=== PATIENT | female | born 1940 | race Caucasian/White ===

== ENCOUNTER 2017-10-25 13:14 | Emergency (ER) | payer MEDICARE, OTHER ==
[~2017-10-25] VITALS: Ht 165.1 cm; Wt 78.9 kg
[~2017-10-25 13:14] MED LIST: ASPI81CH PO; ATOR10 PO; Aspirin EC81 MG PO; BUSP10 PO; CARV6.25 PO; CEPH500 PO; CHOL10002; CITA20 PO; DULO30 PO; GALA4 PO; HYDACE10B PO; HYDACE5325 PO; HYDPAM25 PO; HYDR1TAB94; HYDR1TAB94 PO; LAVAP17G PO; LISI20 PO; LISI5 PO; LORA.5 PO; LORA1 PO; LORATADINE10 MG PO; MECL25 PO; MELO7.5 PO; MONT10T PO; MORP15ER PO; SERT100 PO; Seroquel50 MG PO; VIIBRYD20 MG PO
[2017-10-25] MEDS ORDERED: PSEU120ER PO (14:26)
[2017-10-25] MEDS ORDERED: Flonase 0.05% N16 GM (14:27)
[2017-10-25] MEDS ORDERED: ALBU90OI61 INH (14:28)
[2017-10-25] MEDS ORDERED: POLYETHYLENE G255 GM PO (14:29)
[2017-10-25] MEDS ORDERED: DULO60 PO (14:30)
[2017-10-25] MEDS ORDERED: QUETIAPINE FUMA50 MG PO (14:31)
[2017-10-25] MEDS ORDERED: Prinivil10 MG PO (14:31)
[2017-10-25] MEDS ORDERED: Razadyne12 MG PO (14:32)
[2017-10-25 14:35] LABS: Influenza A Negative (NEGATIVE)
[2017-10-25 14:36] LABS: Influenza B Negative (NEGATIVE)
[2017-10-25] MEDS ORDERED: Mucinex600 MG PO (14:50)
[2017-10-25] MEDS ORDERED: Prednisone20 MG PO (14:50)
[2017-10-25] MEDS ORDERED: Zithromax250 MG PO (14:50)
[2018-07-09] MEDS ORDERED: Ultram50 MG PO (19:28)
== END 2017-10-25 14:58 | disposition home or self-care (01) ==
LOC: ER 13:14
PROVIDERS: Physician Assistant
DX: R05 Cough (principal); Z88.8 Allergy status to other drugs, medicaments and biological substances; Z88.0 Allergy status to penicillin; Z79.899 Other long term (current) drug therapy; Z79.82 Long term (current) use of aspirin; F32.9 Major depressive disorder, single episode, unspecified; F41.9 Anxiety disorder, unspecified; Z87.891 Personal history of nicotine dependence
CPT/HCPCS: 71046; 87804; 99284

== ENCOUNTER 2018-08-15 12:29 | Emergency (ER) | payer MEDICARE, OTHER ==
[~2018-08-15] VITALS: Ht 172.7 cm; Wt 83.9 kg
[~2018-08-15 12:29] MED LIST changes: +ALBU90OI61 INH; +DULO60 PO; +Flonase 0.05% N16 GM; +Mucinex600 MG PO; +POLYETHYLENE G255 GM PO; +PSEU120ER PO; +Prednisone20 MG PO; +Prinivil10 MG PO; +QUETIAPINE FUMA50 MG PO; +Razadyne12 MG PO; +Ultram50 MG PO; +Zithromax250 MG PO
[2018-08-15 12:51] LABS: BASOPHILS ABSOLUTE AUTO 0.08 K/mm3 (0.00-0.23); BASOPHILS PERCENT AUTO 1 % (0-2); EOSINOPHILS ABSOLUTE AUTO 0.35 K/mm3 (0.00-0.68); EOSINOPHILS PERCENT AUTO 6 % (0-6); Hematocrit 33.5 % (33.0-51.0); Hemoglobin 10.8 g/dL (11.5-16.0); IMMATURE GRAN ABSOLUTE AUTO 0.01 K/mm3 (0.00-0.10); IMMATURE GRAN PERCENT AUTO 0 % (0-1); LYMPHOCYTES ABSOLUTE AUTO 3.23 K/mm3 (0.84-5.20); LYMPHOCYTES PERCENT AUTO 51 % (21-46); MONOCYTES ABSOLUTE AUTO 0.54 K/mm3 (0.16-1.47); MONOCYTES PERCENT AUTO 9 % (4-13); Mean Corpuscular HGB 30.6 pg (26.0-34.0); Mean Corpuscular HGB Conc 32.2 g/dL (31.5-36.5); Mean Corpuscular Volume 95 fL (80-100); Mean Platelet Volume 8.5 fL (9.1-12.4); NEUTROPHILS ABSOLUTE AUTO 2.16 K/mm3 (1.96-9.15); NEUTROPHILS PERCENT AUTO 34 % (41-73); Platelet Count 242 K/mm3 (150-400); RDW Coefficient Variation 13.2 % (11.7-14.2); RDW Standard Deviation 45.9 fL (35.1-46.3); Red Blood Cell Count 3.53 M/mm3 (3.80-5.20); White Blood Cell Count 6.37 K/mm3 (4.00-11.30)
[2018-08-15 13:07] LABS: Alanine Aminotransfer (ALT/SGP 11 U/L (12-78); Albumin, Blood 3.4 g/dL (3.4-5.0); Albumin/Globulin Ratio 0.9 (0.8-1.8); Alk Phos 112 U/L (50-136); Anion Gap 6 mmol/L (6-16); Aspartate Aminotrans (AST/SGOT 13 U/L (12-37); Bilirubin, Total 0.4 mg/dL (0.1-1.0); Blood Urea Nitrogen 11 mg/dL (8-24); Bun/Creatinine Ratio 15.4 (12.0-20.0); CO2, Blood 27 mmol/L (21-32); Calcium, Blood 8.4 mg/dL (8.5-10.1); Chloride, Blood 102 mmol/L (98-108); Creatinine, Blood 0.72 mg/dL (0.40-1.00); Globulin, Blood 3.7 g/dL (2.2-4.0); Glomerular Filtration Rate >60 (60-); Glucose, Blood 83 mg/dL (70-99); Potassium, Blood 4.1 mmol/L (3.5-5.5); Sodium, Blood 135 mmol/L (136-145); Total Protein, Blood 7.1 g/dL (6.4-8.2)
[2018-08-15 14:36] LABS: Source, Urine Clean Catch
[2018-08-15 14:55] LABS: Appearance, Urine Hazy (Clear); Bilirubin, Urine Neg (Neg); Blood, Urine 1+ (Neg); Color, Urine Yellow (P-Yellow); Glucose Qualitative, Urine Neg (Neg); Ketones, Urine Neg (Neg); Leukocyte Esterase, Urine 3+ (Neg); Nitrite, Urine Neg (Neg); Protein, Urine 1+ (Neg); Urobilinogen, Urine NORM (Normal)
[2018-08-15 15:16] LABS: White Blood Cells, Urine 25-50 /hpf (0-5)
[2018-08-15 15:17] LABS: Bacteria Many /hpf; Renal Epithelial Rare /hpf (0-Rare); Squamous Epithelial Cells Mod /hpf (Few)
[2018-08-15] MEDS ORDERED: Macrobid 100 M100 MG PO (16:03)
== END 2018-08-15 16:24 | disposition home or self-care (01) ==
LOC: ER 12:29
PROVIDERS: Emergency Medicine
DX: F03.90 Unspecified dementia, unspecified severity, without behavioral disturbance, psychotic disturbance, mood disturbance, and anxiety (principal); N39.0 Urinary tract infection, site not specified; Z88.0 Allergy status to penicillin; Z88.8 Allergy status to other drugs, medicaments and biological substances; Z79.899 Other long term (current) drug therapy; Z79.82 Long term (current) use of aspirin; F32.9 Major depressive disorder, single episode, unspecified; F41.9 Anxiety disorder, unspecified; Z87.891 Personal history of nicotine dependence
CPT/HCPCS: 80053; 81001; 82947; 85025; 87086; 87147; 93005; 93010; 99285-25

== ENCOUNTER 2019-03-03 16:58 | Emergency (ER) | payer MEDICARE, OTHER ==
[~2019-03-03] VITALS: Ht 165.1 cm; Wt 95.2 kg
[~2019-03-03 16:58] MED LIST changes: +Macrobid 100 M100 MG PO
[2019-03-03] MEDS ORDERED: MONT10T PO (17:13)
[2019-03-03] MEDS ORDERED: LISI5 PO (17:13)
[2019-03-03 17:42] LABS: BASOPHILS ABSOLUTE AUTO 0.08 K/mm3 (0.00-0.23); BASOPHILS PERCENT AUTO 1 % (0-2); EOSINOPHILS ABSOLUTE AUTO 0.38 K/mm3 (0.00-0.68); EOSINOPHILS PERCENT AUTO 6 % (0-6); Hematocrit 35.2 % (33.0-51.0); Hemoglobin 11.3 g/dL (11.5-16.0); IMMATURE GRAN ABSOLUTE AUTO 0.01 K/mm3 (0.00-0.10); IMMATURE GRAN PERCENT AUTO 0 % (0-1); LYMPHOCYTES ABSOLUTE AUTO 1.74 K/mm3 (0.84-5.20); LYMPHOCYTES PERCENT AUTO 29 % (21-46); MONOCYTES ABSOLUTE AUTO 0.53 K/mm3 (0.16-1.47); MONOCYTES PERCENT AUTO 9 % (4-13); Mean Corpuscular HGB Conc 32.1 g/dL (31.5-36.5); Mean Corpuscular Volume 91 fL (80-100); Mean Platelet Volume 8.6 fL (9.1-12.4); NEUTROPHILS ABSOLUTE AUTO 3.25 K/mm3 (1.96-9.15); NEUTROPHILS PERCENT AUTO 54 % (41-73); Platelet Count 332 K/mm3 (150-400); RDW Standard Deviation 46.7 fL (35.1-46.3); Red Blood Cell Count 3.89 M/mm3 (3.80-5.20); White Blood Cell Count 5.99 K/mm3 (4.00-11.30)
[2019-03-03 18:03] LABS: Alanine Aminotransfer (ALT/SGP 12 U/L (12-78); Albumin, Blood 3.2 g/dL (3.4-5.0); Albumin/Globulin Ratio 0.8 (0.8-1.8); Alk Phos 139 U/L (50-136); Anion Gap 5 mmol/L (6-16); Aspartate Aminotrans (AST/SGOT 12 U/L (12-37); Bilirubin, Total 0.6 mg/dL (0.1-1.0); Blood Urea Nitrogen 8 mg/dL (8-24); Bun/Creatinine Ratio 12.7 (12.0-20.0); CO2, Blood 29 mmol/L (21-32); Chloride, Blood 101 mmol/L (98-108); Creatinine, Blood 0.63 mg/dL (0.40-1.00); Globulin, Blood 4.2 g/dL (2.2-4.0); Glomerular Filtration Rate >60 (60-); Glucose, Blood 116 mg/dL (70-99); Potassium, Blood 4.2 mmol/L (3.5-5.5); Sodium, Blood 135 mmol/L (136-145); Total Protein, Blood 7.4 g/dL (6.4-8.2); Troponin I <0.015 ng/mL (0.000-0.040)
== END 2019-03-03 20:06 | disposition home or self-care (01) ==
LOC: ER 16:58
PROVIDERS: Emergency Medicine
DX: R20.2 Paresthesia of skin (principal); Z86.73 Personal history of transient ischemic attack (TIA), and cerebral infarction without residual deficits; Z88.0 Allergy status to penicillin; Z88.8 Allergy status to other drugs, medicaments and biological substances; Z79.899 Other long term (current) drug therapy; Z79.82 Long term (current) use of aspirin; F32.9 Major depressive disorder, single episode, unspecified; F41.9 Anxiety disorder, unspecified; Z87.891 Personal history of nicotine dependence
CPT/HCPCS: 36415; 70450; 80053; 84484; 85025; 93005; 93010; 99284-25

== ENCOUNTER → 2019-08-10 | Outpatient (CLI) | payer MEDICARE, OTHER ==
[2019-08-10 17:36] LABS: BASOPHILS ABSOLUTE AUTO 0.08 K/mm3 (0.00-0.23); BASOPHILS PERCENT AUTO 1 % (0-2); EOSINOPHILS ABSOLUTE AUTO 0.42 K/mm3 (0.00-0.68); EOSINOPHILS PERCENT AUTO 4 % (0-6); Hematocrit 40.8 % (33.0-51.0); Hemoglobin 13.1 g/dL (11.5-16.0); IMMATURE GRAN ABSOLUTE AUTO 0.03 K/mm3 (0.00-0.10); IMMATURE GRAN PERCENT AUTO 0 % (0-1); LYMPHOCYTES PERCENT AUTO 24 % (21-46); MONOCYTES ABSOLUTE AUTO 0.78 K/mm3 (0.16-1.47); MONOCYTES PERCENT AUTO 7 % (4-13); Mean Corpuscular HGB 28.9 pg (26.0-34.0); Mean Corpuscular HGB Conc 32.1 g/dL (31.5-36.5); Mean Corpuscular Volume 90 fL (80-100); Mean Platelet Volume 9.3 fL (9.1-12.4); NEUTROPHILS ABSOLUTE AUTO 7.32 K/mm3 (1.96-9.15); NEUTROPHILS PERCENT AUTO 65 % (41-73); Platelet Count 297 K/mm3 (150-400); RDW Coefficient Variation 14.2 % (11.7-14.2); RDW Standard Deviation 46.8 fL (35.1-46.3); Red Blood Cell Count 4.54 M/mm3 (3.80-5.20); White Blood Cell Count 11.33 K/mm3 (4.00-11.30)
[2019-08-10 17:56] LABS: Alanine Aminotransfer (ALT/SGP 11 U/L (12-78); Albumin, Blood 3.8 g/dL (3.4-5.0); Albumin/Globulin Ratio 0.8 (0.8-1.8); Alk Phos 158 U/L (40-126); Anion Gap 9 mmol/L (6-16); Aspartate Aminotrans (AST/SGOT 16 U/L (12-37); Bilirubin, Total 0.7 mg/dL (0.1-1.0); Blood Urea Nitrogen 11 mg/dL (8-24); Bun/Creatinine Ratio 14.3 (12.0-20.0); CO2, Blood 29 mmol/L (21-32); Calcium, Blood 9.2 mg/dL (8.5-10.1); Chloride, Blood 103 mmol/L (98-108); Creatinine, Blood 0.77 mg/dL (0.40-1.00); Globulin, Blood 4.6 g/dL (2.2-4.0); Glomerular Filtration Rate >60 (60-); Glucose, Blood 108 mg/dL (70-99); Potassium, Blood 3.8 mmol/L (3.5-5.5); Sodium, Blood 141 mmol/L (136-145); Total Protein, Blood 8.4 g/dL (6.4-8.2)
== END | disposition home or self-care (01) ==
LOC: LAB EV 17:32 → LAB SHORT 17:32
PROVIDERS: Physician Assistant
DX: R30.0 Dysuria (principal); R53.83 Other fatigue
CPT/HCPCS: 80053; 84443; 85025; 87077; 87086; 87186

== ENCOUNTER 2019-10-03 11:22 | Emergency (ER) | payer MEDICARE, OTHER ==
[~2019-10-03] VITALS: Ht 162.6 cm; Wt 97.5 kg
[2019-10-03 12:07] LABS: BASOPHILS ABSOLUTE AUTO 0.06 K/mm3 (0.00-0.23); BASOPHILS PERCENT AUTO 1 % (0-2); EOSINOPHILS ABSOLUTE AUTO 0.21 K/mm3 (0.00-0.68); EOSINOPHILS PERCENT AUTO 2 % (0-6); Hematocrit 38.6 % (33.0-51.0); Hemoglobin 12.5 g/dL (11.5-16.0); IMMATURE GRAN ABSOLUTE AUTO 0.06 K/mm3 (0.00-0.10); IMMATURE GRAN PERCENT AUTO 1 % (0-1); LYMPHOCYTES ABSOLUTE AUTO 2.42 K/mm3 (0.84-5.20); LYMPHOCYTES PERCENT AUTO 19 % (21-46); MONOCYTES ABSOLUTE AUTO 1.25 K/mm3 (0.16-1.47); MONOCYTES PERCENT AUTO 10 % (4-13); Mean Corpuscular HGB 28.5 pg (26.0-34.0); Mean Corpuscular HGB Conc 32.4 g/dL (31.5-36.5); Mean Corpuscular Volume 88 fL (80-100); Mean Platelet Volume 9.6 fL (9.1-12.4); NEUTROPHILS ABSOLUTE AUTO 8.81 K/mm3 (1.96-9.15); NEUTROPHILS PERCENT AUTO 69 % (41-73); Platelet Count 305 K/mm3 (150-400); RDW Coefficient Variation 14.1 % (11.7-14.2); RDW Standard Deviation 45.3 fL (35.1-46.3); Red Blood Cell Count 4.38 M/mm3 (3.80-5.20); White Blood Cell Count 12.81 K/mm3 (4.00-11.30)
[2019-10-03 12:35] LABS: Alanine Aminotransfer (ALT/SGP 11 U/L (12-78); Albumin, Blood 3.1 g/dL (3.4-5.0); Albumin/Globulin Ratio 0.7 (0.8-1.8); Alk Phos 117 U/L (50-136); Anion Gap 8 mmol/L (6-16); Aspartate Aminotrans (AST/SGOT 18 U/L (12-37); Blood Urea Nitrogen 8 mg/dL (8-24); Bun/Creatinine Ratio 13.5 (12.0-20.0); CO2, Blood 32 mmol/L (21-32); Calcium, Blood 8.8 mg/dL (8.5-10.1); Chloride, Blood 93 mmol/L (98-108); Creatinine, Blood 0.59 mg/dL (0.40-1.00); Globulin, Blood 4.7 g/dL (2.2-4.0); Glomerular Filtration Rate >60 (60-); Glucose, Blood 107 mg/dL (70-99); Potassium, Blood 2.9 mmol/L (3.5-5.5); Sodium, Blood 133 mmol/L (136-145); Total Protein, Blood 7.8 g/dL (6.4-8.2)
[2019-10-03 14:31] LABS: Source, Urine Catheter
[2019-10-03 14:52] LABS: Bilirubin, Urine Neg (Neg); Blood, Urine 1+ (Neg); Glucose Qualitative, Urine Neg (Neg); Ketones, Urine 2+ (Neg); Leukocyte Esterase, Urine 3+ (Neg); Nitrite, Urine Neg (Neg); Protein, Urine Neg (Neg); Urobilinogen, Urine NORM (Normal)
[2019-10-03 15:41] LABS: Appearance, Urine Hazy (Clear); Color, Urine Yellow (P-Yellow)
[2019-10-03 15:42] LABS: Bacteria Many /hpf; Red Blood Cells, Urine 0-2 /hpf (0-2); Squamous Epithelial Cells Few /hpf (Few); White Blood Cells, Urine TNTC /hpf (0-5)
[2019-10-03] MEDS ORDERED: POTCHL20ER PO (15:49)
[2019-10-03] MEDS ORDERED: CEPH500 PO (15:49)
== END 2019-10-03 16:21 | disposition home or self-care (01) ==
LOC: ER 11:22
PROVIDERS: Physician Assistant
DX: S70.01XA Contusion of right hip, initial encounter (principal); N39.0 Urinary tract infection, site not specified; E87.6 Hypokalemia; J44.9 Chronic obstructive pulmonary disease, unspecified; I10 Essential (primary) hypertension; F03.90 Unspecified dementia, unspecified severity, without behavioral disturbance, psychotic disturbance, mood disturbance, and anxiety; Z86.73 Personal history of transient ischemic attack (TIA), and cerebral infarction without residual deficits; Z87.891 Personal history of nicotine dependence; W19.XXXA Unspecified fall, initial encounter
CPT/HCPCS: 73523; 80053; 81001; 85025; 87086; 99284-25

== ENCOUNTER 2020-09-24 09:56 | Emergency (ER) | payer MEDICARE, OTHER ==
[~2020-09-24] VITALS: Ht 170.2 cm; Wt 81.7 kg
[~2020-09-24 09:56] MED LIST changes: -ALBU90OI61 INH; -ASPI81CH PO; +CEFD300 PO; -DULO60 PO; +POTCHL20ER PO; -QUETIAPINE FUMA50 MG PO; -Razadyne12 MG PO; -Seroquel50 MG PO; +TAMS.4ER PO
[2020-09-24 11:06] LABS: BASOPHILS ABSOLUTE AUTO 0.07 K/mm3 (0.00-0.23); BASOPHILS PERCENT AUTO 1 % (0-2); EOSINOPHILS ABSOLUTE AUTO 0.48 K/mm3 (0.00-0.68); EOSINOPHILS PERCENT AUTO 6 % (0-6); Hematocrit 36.1 % (33.0-51.0); Hemoglobin 11.2 g/dL (11.5-16.0); IMMATURE GRAN ABSOLUTE AUTO 0.02 K/mm3 (0.00-0.10); IMMATURE GRAN PERCENT AUTO 0 % (0-1); LYMPHOCYTES ABSOLUTE AUTO 2.47 K/mm3 (0.84-5.20); LYMPHOCYTES PERCENT AUTO 31 % (21-46); MONOCYTES ABSOLUTE AUTO 0.65 K/mm3 (0.16-1.47); MONOCYTES PERCENT AUTO 8 % (4-13); Mean Corpuscular HGB 28.3 pg (26.0-34.0); Mean Corpuscular Volume 91 fL (80-100); Mean Platelet Volume 9.8 fL (9.1-12.4); NEUTROPHILS ABSOLUTE AUTO 4.19 K/mm3 (1.96-9.15); NEUTROPHILS PERCENT AUTO 53 % (41-73); Platelet Count 279 K/mm3 (150-400); RDW Coefficient Variation 14.1 % (11.7-14.2); RDW Standard Deviation 47.8 fL (35.1-46.3); Red Blood Cell Count 3.96 M/mm3 (3.80-5.20); White Blood Cell Count 7.88 K/mm3 (4.00-11.30)
[2020-09-24 11:17] LABS: Alanine Aminotransfer (ALT/SGP 19 U/L (12-78); Albumin, Blood 3.1 g/dL (3.4-5.0); Albumin/Globulin Ratio 0.7 (0.8-1.8); Alk Phos 147 U/L (50-136); Anion Gap 5 mmol/L (6-16); Aspartate Aminotrans (AST/SGOT 11 U/L (12-37); Bilirubin, Total 0.7 mg/dL (0.1-1.0); Blood Urea Nitrogen 17 mg/dL (8-24); Bun/Creatinine Ratio 22.4 (12.0-20.0); CO2, Blood 27 mmol/L (21-32); Chloride, Blood 107 mmol/L (98-108); Creatinine, Blood 0.76 mg/dL (0.40-1.00); Globulin, Blood 4.2 g/dL (2.2-4.0); Glomerular Filtration Rate >60 (60-); Glucose, Blood 116 mg/dL (70-99); Potassium, Blood 4.2 mmol/L (3.5-5.5); Sodium, Blood 139 mmol/L (136-145); Total Protein, Blood 7.3 g/dL (6.4-8.2); Troponin I <0.015 ng/mL (0.000-0.040)
[2020-09-24] MEDS ORDERED: ATOR40TA PO (13:04)
[2020-09-24] MEDS ORDERED: Razadyne12 MG PO (13:04)
[2020-09-24] MEDS ORDERED: MEMANTINE HCL10 MG PO (13:05)
[2020-09-24] MEDS ORDERED: ASPI81CH PO (13:06)
[2020-09-24] MEDS ORDERED: MELO7.5 PO (13:06)
[2020-09-24] MEDS ORDERED: QUET25 PO (13:07)
[2020-09-24] MEDS ORDERED: QUET100 PO (13:07)
[2020-09-24] MEDS ORDERED: LOSARTAN POTASS25 M2 PO (13:07)
[2020-09-24] MEDS ORDERED: DULO60 PO (13:07)
[2020-09-24] MEDS ORDERED: CARV6.25 PO (13:08)
[2020-09-24] MEDS ORDERED: MONT10T PO (13:08)
[2020-09-24] MEDS ORDERED: ALBU90OI61 INH (13:10)
== END 2020-09-24 14:30 | disposition home or self-care (01) ==
LOC: ER 09:56
PROVIDERS: Emergency Medicine
DX: R55 Syncope and collapse (principal); R00.1 Bradycardia, unspecified; R56.9 Unspecified convulsions; J44.9 Chronic obstructive pulmonary disease, unspecified; Z88.0 Allergy status to penicillin; Z79.899 Other long term (current) drug therapy; Z91.018 Allergy to other foods; Z86.73 Personal history of transient ischemic attack (TIA), and cerebral infarction without residual deficits
CPT/HCPCS: 70450; 71046; 80053; 84484; 85025; 93005; 93010; 99285-25

== ENCOUNTER 2020-12-22 13:38 | Inpatient (IN) | payer MEDICARE, OTHER ==
[~2020-12-22] VITALS: Ht 167.6 cm; Wt 90.5 kg
[~2020-12-22 13:38] MED LIST changes: +ALBU90OI61 INH; +ASPI81CH PO; +ATOR40TA PO; +DULO60 PO; +LOSARTAN POTASS25 M2 PO; +MEMANTINE HCL10 MG PO; +QUET100 PO; +QUET25 PO; +Razadyne12 MG PO
[2020-12-22 13:50] LABS: Calcium, Ionized (POC) 1.16 mmol/L (1.10-1.46); Chloride (POC) 99 mmol/L (98-108); Glucose (ISTAT POC) 174 mg/dL (70-99); Hemoglobin (POC) 11.2 g/dL (12.0-16.0); Potassium (POC) 3.4 mmol/L (3.5-5.5); Sodium (POC) 138 mmol/L (135-148); Total CO2 (POC) 22 mmol/L (21-32)
[2020-12-22 13:53] LABS: BASOPHILS ABSOLUTE AUTO 0.08 K/mm3 (0.00-0.23); BASOPHILS PERCENT AUTO 1 % (0-2); EOSINOPHILS ABSOLUTE AUTO 0.18 K/mm3 (0.00-0.68); EOSINOPHILS PERCENT AUTO 1 % (0-6); Hematocrit 31.6 % (33.0-51.0); Hemoglobin 9.9 g/dL (11.5-16.0); IMMATURE GRAN ABSOLUTE AUTO 0.03 K/mm3 (0.00-0.10); IMMATURE GRAN PERCENT AUTO 0 % (0-1); LYMPHOCYTES ABSOLUTE AUTO 6.83 K/mm3 (0.84-5.20); LYMPHOCYTES PERCENT AUTO 54 % (21-46); MONOCYTES PERCENT AUTO 6 % (4-13); Mean Corpuscular HGB 27.7 pg (26.0-34.0); Mean Corpuscular HGB Conc 31.3 g/dL (31.5-36.5); Mean Corpuscular Volume 88 fL (80-100); Mean Platelet Volume 9.6 fL (9.1-12.4); NEUTROPHILS ABSOLUTE AUTO 4.79 K/mm3 (1.96-9.15); NEUTROPHILS PERCENT AUTO 38 % (41-73); Platelet Count 316 K/mm3 (150-400); RDW Coefficient Variation 14.5 % (11.7-14.2); RDW Standard Deviation 46.8 fL (35.1-46.3); Red Blood Cell Count 3.58 M/mm3 (3.80-5.20); White Blood Cell Count 12.71 K/mm3 (4.00-11.30)
[2020-12-22 14:10] LABS: International Normalized Ratio 1.02
[2020-12-22 14:11] LABS: Alanine Aminotransfer (ALT/SGP 10 U/L (12-78); Albumin, Blood 2.5 g/dL (3.4-5.0); Albumin/Globulin Ratio 0.5 (0.8-1.8); Alk Phos 124 U/L (50-136); Anion Gap 11 mmol/L (6-16); Aspartate Aminotrans (AST/SGOT 16 U/L (12-37); Bilirubin, Total 0.6 mg/dL (0.1-1.0); Blood Urea Nitrogen 47 mg/dL (8-24); Bun/Creatinine Ratio 48.2 (12.0-20.0); CO2, Blood 23 mmol/L (21-32); Calcium, Blood 8.7 mg/dL (8.5-10.1); Chloride, Blood 103 mmol/L (98-108); Creatinine, Blood 0.98 mg/dL (0.40-1.00); Ethanol (Alcohol), Blood, Med <3 mg/dL; Globulin, Blood 4.8 g/dL (2.2-4.0); Glomerular Filtration Rate 58 (60-); Glucose, Blood 181 mg/dL (70-99); Potassium, Blood 3.3 mmol/L (3.5-5.5); Sodium, Blood 137 mmol/L (136-145); Total Protein, Blood 7.3 g/dL (6.4-8.2)
[2020-12-22 15:06] LABS: Source, Urine Catheter
[2020-12-22 15:20] LABS: Blood, Urine 1+ (Neg); Glucose Qualitative, Urine Neg (Neg); Ketones, Urine Neg (Neg); Leukocyte Esterase, Urine 1+ (Neg); Nitrite, Urine Neg (Neg); Protein, Urine 1+ (Neg); Urobilinogen, Urine 1+ (Normal)
[2020-12-22 15:26] LABS: Appearance, Urine Hazy (Clear); Bilirubin, Urine 1+ (Neg); Color, Urine Yellow (P-Yellow)
[2020-12-22 15:28] LABS: Red Blood Cells, Urine 0-2 /hpf (0-2); Squamous Epithelial Cells Rare /hpf (Few)
[2020-12-22 15:29] LABS: Bacteria Mod /hpf
[2020-12-22 15:35] LABS: U Amphetamine Screen Not Detected; U Barbituate Screen Not Detected; U Benzodiazapine Screen Not Detected; U Buprenorphine Screen Not Detected; U Cannabinoids Screen Not Detected; U Cocaine Screen Not Detected; U Methadone Screen Not Detected; U Methamphetamine Screen Not Detected; U Opiates Screen Not Detected; U Oxycodone Screen Not Detected; U Phencyclidine Screen Not Detected; U Propoxyphene Screen Not Detected
[2020-12-23 03:47] LABS: BASOPHILS ABSOLUTE AUTO 0.05 K/mm3 (0.00-0.23); BASOPHILS PERCENT AUTO 1 % (0-2); EOSINOPHILS ABSOLUTE AUTO 0.13 K/mm3 (0.00-0.68); EOSINOPHILS PERCENT AUTO 1 % (0-6); Hematocrit 22.5 % (33.0-51.0); Hemoglobin 7.4 g/dL (11.5-16.0); IMMATURE GRAN ABSOLUTE AUTO 0.02 K/mm3 (0.00-0.10); IMMATURE GRAN PERCENT AUTO 0 % (0-1); LYMPHOCYTES ABSOLUTE AUTO 2.88 K/mm3 (0.84-5.20); LYMPHOCYTES PERCENT AUTO 30 % (21-46); MONOCYTES PERCENT AUTO 6 % (4-13); Mean Corpuscular HGB 28.6 pg (26.0-34.0); Mean Corpuscular HGB Conc 32.9 g/dL (31.5-36.5); Mean Corpuscular Volume 87 fL (80-100); Mean Platelet Volume 10.2 fL (9.1-12.4); NEUTROPHILS ABSOLUTE AUTO 5.84 K/mm3 (1.96-9.15); NEUTROPHILS PERCENT AUTO 61 % (41-73); Platelet Count 207 K/mm3 (150-400); RDW Coefficient Variation 14.4 % (11.7-14.2); RDW Standard Deviation 45.4 fL (35.1-46.3); Red Blood Cell Count 2.59 M/mm3 (3.80-5.20); White Blood Cell Count 9.52 K/mm3 (4.00-11.30)
[2020-12-23 04:06] LABS: Anion Gap 8 mmol/L (6-16); Blood Urea Nitrogen 52 mg/dL (8-24); Bun/Creatinine Ratio 70.4 (12.0-20.0); CO2, Blood 26 mmol/L (21-32); Calcium, Blood 7.8 mg/dL (8.5-10.1); Chloride, Blood 104 mmol/L (98-108); Creatinine, Blood 0.74 mg/dL (0.40-1.00); Glomerular Filtration Rate >60 (60-); Glucose, Blood 95 mg/dL (70-99); Potassium, Blood 3.6 mmol/L (3.5-5.5); Sodium, Blood 138 mmol/L (136-145)
[2020-12-23 09:08] LABS: Hematocrit 22.5 % (33.0-51.0); Hemoglobin 7.2 g/dL (11.5-16.0)
[2020-12-23 09:34] LABS: Percent Saturation 20.5 % (15.0-50.0)
--- NOTE | 2020-12-23 10:06 | NUR ---
AM NOTE PT ALERT AND ORIENTED TO SELF AND PLACE. PT IS FORGTFULL AT TIMES AND HARD OF HEARING. BP WAS 108/55, PULSE 92. PT DENIED CHEST PAIN OR SOB BUT STATED SHE WAS SLIGHTLY NAUSEOUS. UPON AM SHIFT CHANGE, PT EXPERIENCED ORTHOSTATIC HYPOTENSOIN WHILE USING BEDSIDE COMMODE. PT WILL NOW USE BEDPAN TO VOID WITH ASSISTANCE. PT DAUGHTER/CARGIVER IN CONTACT WITH PT; DAUGHTER PHONE NUMBER IS ON BOARD. HGB AND HCT BOTH L. PT REFUSES BLOOD PRODUCTS IT IS CONTRADICTORY TO MANDAEISM. 500ML BOLUS ADMINISTERED THIS AM. VS STABLE AT THIS TIME. BED ALARM ON, LOW AND LOCK POSITION, CALL LIGHT W/IN REACH. WILL CONTINUE TO MONITOR.
--- NOTE | 2020-12-23 13:37 | NUR ---
CARE COORDINATION REFERRAL - ADMIT: 12/22/20 DISCHARGE: DX: ALTERED MENTAL STATUS CC: KWILCOX JORDY CALL: RESIDENCE: HOME CAREGIVER: ANNA DSOUZA, CHILD, [id number] DX: ANXIETY, CHRONIC HYPONATREMIA, DEMENTIA, HTN, SEE LIST DME: NONE CCM: REFERRAL- 09/2020 HOME HEALTH: [facility] SUMMARY: ADMIT: 12/22/20 12/23/20- PER CHART REVIEW WITH DR. GARBER, PT HAS GI BLEED WITH DEMENTIA AND SHE IS SCHEDULED TO HAVE COLONOSCOPY AND EGD DONE TODAY. PT'S RASTAFARIAN IS JW AND WILL NOT ACCEPT BLOOD PRODUCTS. NO PLAN FOR D/C AT THIS TIME. -DAYLIN
[2020-12-23 14:43] LABS: Hematocrit 20.8 % (33.0-51.0); Hemoglobin 6.8 g/dL (11.5-16.0)
--- NOTE | 2020-12-23 17:14 | NUR ---
SHIFT SUMMARY PT ALERT AND ORIENTED TO SELF, PLACE, FAMILY. PT IS PLEASANT AND COOPERATIVE WITH CARE. SHE IS FORGETFULL AT TIMES AND HARD OF HEARING. VS STABLE WITH EXCEPTION OF HR RUNNING FROM 113-120. PT DENIED CHEST PAIN BUT HAS COMPLAINED OF NAUSEA THROUGHOUT SHIFT; HEMANTH PULLIAM TREATED NAUSEA PER EMAR. PT HAD LOOSE, BLACK STOOLS THROUGHOUT SHIFT. PT VOMITED 2X; EMESIS WAS BROWN. EMESIS USUALLY FOLLOWS AFTER MOVING PT DURING Q2 TURNS OR EDD CARE. EDD AREA OF PT IS RED AND IRRITATED. THIS STUDENT APPLIED CALAMINE LOTION TO EASE IRRITATION, ALSO KEEPING PT CLEAN AND DRY. PT SACRAL AREA ALSO SLIGHTLY RED AND IRRITATED. THIS STUDENT APPLIED ALLEVYN BANDAGE AND IS DOING Q2 TURNS TO APPEASE DISCOMFORT. NO OTHER ACUTE CHANGES NOTED. PT NOW IN DAY SURGERY FOR PROCEDURE; DAUGHTER WAS AT BEDSIDE THIS AFTERNOON. WILL CONTINUE TO MONITOR FOR REMAINDER OF SHIFT.
--- NOTE | 2020-12-23 17:42 | NUR ---
Patient states colon prep results clear. History, Chart, Medications and Allergies reviewed before start of procedure.Pre-Op teaching done. Pt verbalizes understanding. PT HAS ALZHEIMERS, DAUGHTER AT BEDSIDE TO SIGN CONSENTS AND FOR SUPPORT
--- NOTE | 2020-12-23 18:09 | NUR ---
12/23/20 1809 MELINDA JIMÉNEZ History, Chart, Medications and Allergies reviewed before start of procedure. 3-LEAD EKG REVIEWED WITH PHYSICIAN PRIOR TO START OF PROCEDURE. O2 VIA POM MASK INTACT THROUGHOUT SEDATION/PROCEDURE. MONITOR INTACT WITH CONTINUOUS PULSE OXIMETRY AND INTERMITTENT BP. PATIENT DETERMINED TO BE ASA APPROPRIATE FOR PROPOFOL SEDATION PRIOR TO START OF PROCEDURE BY DR. CROWE
--- NOTE | 2020-12-23 19:32 | NUR ---
THIS RN HAS REVIEWED THE PROGRAM MANAGER TRANSPORTATION DOCUMENTATION AND IS IN AGREEMENT. PT AT PROCEDURE AT THIS TIME. REPORT GIVEN TO ONCOMING RN.
--- NOTE | 2020-12-23 20:15 | NUR ---
RETURN FROM ENDSCOPY UPON ARRIVAL FROM SCOPE TO ROOM, RESTARTED PROTONIX GTT PER ORDER TO CONTINUE. VSS, NO ACUTE CONCERNS AT THIS TIME. NOTIFIED PRIMARY RN DELROY.
[2020-12-24 04:02] LABS: BASOPHILS ABSOLUTE AUTO 0.03 K/mm3 (0.00-0.23); BASOPHILS PERCENT AUTO 0 % (0-2); EOSINOPHILS PERCENT AUTO 0 % (0-6); IMMATURE GRAN PERCENT AUTO 1 % (0-1); LYMPHOCYTES ABSOLUTE AUTO 1.04 K/mm3 (0.84-5.20); LYMPHOCYTES PERCENT AUTO 6 % (21-46); MONOCYTES ABSOLUTE AUTO 0.96 K/mm3 (0.16-1.47); MONOCYTES PERCENT AUTO 6 % (4-13); Mean Corpuscular HGB Conc 32.9 g/dL (31.5-36.5); Mean Corpuscular Volume 88 fL (80-100); NEUTROPHILS ABSOLUTE AUTO 15.39 K/mm3 (1.96-9.15); NEUTROPHILS PERCENT AUTO 88 % (41-73); Platelet Count 220 K/mm3 (150-400); RDW Coefficient Variation 14.6 % (11.7-14.2); Red Blood Cell Count 1.93 M/mm3 (3.80-5.20); White Blood Cell Count 17.52 K/mm3 (4.00-11.30)
[2020-12-24 04:04] LABS: Hemoglobin 5.6 g/dL (11.5-16.0)
[2020-12-24 04:19] LABS: Anion Gap 8 mmol/L (6-16); Blood Urea Nitrogen 31 mg/dL (8-24); Bun/Creatinine Ratio 42.7 (12.0-20.0); CO2, Blood 24 mmol/L (21-32); Calcium, Blood 8.2 mg/dL (8.5-10.1); Chloride, Blood 112 mmol/L (98-108); Creatinine, Blood 0.73 mg/dL (0.40-1.00); Glomerular Filtration Rate >60 (60-); Glucose, Blood 132 mg/dL (70-99); Potassium, Blood 3.2 mmol/L (3.5-5.5); Sodium, Blood 144 mmol/L (136-145)
--- NOTE | 2020-12-24 06:14 | NUR ---
PT RETURNED FROM COLONOSCOPY AROUND 1944. NAUSEATED W/ MOVEMENT, IMPULSIVE AND VERY ANXIOUS. X1 DOSE IV ATIVAN GIVEN. HR INCREASED TO 140 WHEN ANXIOUS. REQUIRING 02 @2L N/C FOR SPO2 DECREASING TO LOW 80S WHEN ASLEEP. H/H DECREASED TO 5.6/17.0. MD AWARE. NO NEW ORDERS.
--- NOTE | 2020-12-24 11:22 | NUR ---
AM NOTE PT RESTING MOST OF AM BUT EASILY AROUSABLE. PT DENIES CHEST PAIN/PRESSURE/NAUSEA. PT ALERT TO SELF, FAMILY, AND PLACE BUT IS FORGETFUL AT TIMES. PT ALSO [place]. UPON CHART REVIEW, PT HAS GI BLEED; THIS STUDEN WILL CONTINUE TO MONITOR H&H/OTHER LABS. SPO2 RUNNING 95-96 ON 2L VIA NASAL CANNULA. VS STABLE WITH EXCEPTION OF HR RUNNING IN A-FLUTTER AT 105 PER TELE MONITOR. PT COMPLAINED OF URGE TO VOID DESPITE BLAIR CATHETER. BLAIR IS PATENT AND DRAINING WITH GRAVITY, BLADDER SCAN SHOED 0 VOLUME. THIS STUDENT CONTINUES TO REORIENT PT. WILL CONTINUE TO MONITOR THROUGHOUT SHIFT. CALL LIGHT IN REACH, BED ALARM ON/LOW/LOCKED.
--- NOTE | 2020-12-24 13:20 | NUR ---
PT SLEEPING, EASY TO AROUSE. PT TOOK OFF NASAL CANNULA AND IS REFUSING TO WEAR. SPO2 96% ON ROOM AIR. WILL CONTINUE TO MONITOR. CALL LIGHT IN REACH. BED ALARM ON; BED LOW AND LOCKED.
--- NOTE | 2020-12-24 15:36 | NUR ---
12/24/20- per chart review with Dr. Roy, pt's chronic anemia is still not well controlled and she is refusing a blood transfusion due to yarsanism beliefs. There is no plan to d.c at this time. -stacia
--- NOTE | 2020-12-24 16:44 | NUR ---
SHIFT SUMMARY PT ALERT TO SELF, PLACE AND FAMILY. VSS, HR NOW IN 80'S. PT DENIED NAUSEA AND CHEST PAIN/PRESSURE T/O SHIFT. PT HAS BEEN RESTING MOST OF DAY. PT STILL DENIES USE OF NASAL CANNULA BUT SP02 RUNNING 93-96%. NO ACUTE CHANGES NOTED. WILL CONTINUE TO MONITOR FOR REMAINDER OF SHIFT. BED ALARM ON, CALL LIGHT IN REACH.
--- NOTE | 2020-12-24 19:30 | NUR ---
THIS RN HAS REVIEWED THE TAXI DANCER DOCUMENTAION AND IS IN AGREEMENT. PT RECIEVED EPOGEN. DR CROWE AT BEDSIDE THIS EVENING. VSS. NO OTHER ACUTE CHANGES NOTED DURING SHIFT. REPORT GIVEN TO ONCOMING RN.
--- NOTE | 2020-12-25 06:26 | NUR ---
CHARTING THIS RN HAS REVIEWED STUDENT RN'S NOTES/CHARTING AND AGREE WITH ALL ABOVE. DOWNTIME PAPERCHARTING THIS SHIFT FROM 0000 - 0615. SEE CHART.
[2020-12-25 07:10] LABS: Anion Gap 5 mmol/L (6-16); Blood Urea Nitrogen 19 mg/dL (8-24); Bun/Creatinine Ratio 26.4 (12.0-20.0); CO2, Blood 26 mmol/L (21-32); Calcium, Blood 7.9 mg/dL (8.5-10.1); Chloride, Blood 110 mmol/L (98-108); Creatinine, Blood 0.72 mg/dL (0.40-1.00); Glomerular Filtration Rate >60 (60-); Glucose, Blood 147 mg/dL (70-99); Potassium, Blood 3.2 mmol/L (3.5-5.5); Sodium, Blood 141 mmol/L (136-145)
[2020-12-25 07:29] LABS: Hematocrit 14.1 % (33.0-51.0); Hemoglobin 4.5 g/dL (11.5-16.0)
--- NOTE | 2020-12-25 13:48 | NUR ---
12/25/20- per chart review with Dr. Roy, pt is still experiencing decrease in hemoglobin, she is on an Iron infusion and there is concern about her not recovering well for her anemia. No plan for d/c at this time. -stacia
--- NOTE | 2020-12-25 16:37 | NUR ---
LATE ENRTY 1600 PT BP TRENDING DOWN, MAP >65; PT HR SINUS TACH 100-120'S; PT DENIES DIZZINESS/LIGHTHEADEDNESS. NO S/SX OF DISTRESS NOTED. NOTIFIED DR NILESH GARBER, NEW ORDER TO HOLD IRON WHILE ADMINISTERING NS 500CC BOLUS, THEN CONTINUE WITH IRON INFUSION. NEW ORDER TO INCREASED D5 1/2 NS 20KCL TO 100ML/HR. WILL CONTINUE TO MONTIOR.
--- NOTE | 2020-12-25 18:01 | NUR ---
pt daughter at bedside pt minimally reponsive to conversation. Pt daughter wants to know about plan of care and medications being given. agronomy manager notified and doctor notified. Theraputic time with pt daughter to assess her stress. Will follow up with daughter.
--- NOTE | 2020-12-25 18:50 | NUR ---
SHIFT SUMMARY PT APPEARS TO BE SLEEPING FOR MAJORITY OF SHIFT, WAKES QUICKLY. ORIENTED TO SELF, FAMILY AND FOLLOWING DIRECTIONS. PT REPOSITIONED FOR COMFORT AND PRESSURE ULCER PREVENTION. PT DENIES PAIN, CHEST PAIN, SOB, NASUEA AND DIZZINESS T/O SHIFT. NO S/SX OF DISTRESS NOTED. PT BP TREDNING DOWN, NOTIFIED DR Romero GARBER, BOLUS GIVEN PER ORDERS. PT RECIEVING IV IRON, APPEARS TO BE TOLERATING WELL. CRITICAL VALUE CALLED TO DR GARBER THIS AM, NO NEW ORDER AT THAT TIME. NO BM NOTED TODAY. PT HAS MINIMAL INTAKE AND OUTPUT T/O SHIFT. TELE FLUTTER 110-120'S. LS CLEAR T/O SHIFT, SPO2 >90% T/O SHIFT. PALE IN APPEARANCE. DR CASTILLO AT BEDSIDE. DISCUSSED WITH SALESFORCE SPECIALIST GABE, EDUCATED FAMILY THAT WE WILL ALLOW ADDITIONAL VISITORS AT THIS TIME. OTHER VSS. NO OTHER ACUTE CHANGES NOTED. REPORT GIVEN TO ONCOMING RN.
--- NOTE | 2020-12-26 04:20 | NUR ---
SHIFT SUMMARY HEART BEV REMAINED AFLUTTER IN THE 120'S. PATIENT ALERT BUT ONLY ORIENTED TO SELF AND PLACE. SHE FORGETS LIMITATIONS EASILY. PATIENT RESTED MAJORITY OF SHIFT OCCASIONALLY CALLING OUT FOR HER DAUGHTER ANNA. NO ACUTE CHANGES OCCURED ON SHIFT. WILL CONTINUE TO MONITOR UNTIL END OF SHIFT.
[2020-12-26 05:42] LABS: Anion Gap 4 mmol/L (6-16); Blood Urea Nitrogen 16 mg/dL (8-24); Bun/Creatinine Ratio 21.7 (12.0-20.0); CO2, Blood 27 mmol/L (21-32); Calcium, Blood 7.7 mg/dL (8.5-10.1); Chloride, Blood 109 mmol/L (98-108); Creatinine, Blood 0.74 mg/dL (0.40-1.00); Glomerular Filtration Rate >60 (60-); Glucose, Blood 117 mg/dL (70-99); Potassium, Blood 3.5 mmol/L (3.5-5.5); Sodium, Blood 140 mmol/L (136-145)
[2020-12-26 05:45] LABS: Hematocrit 11.1 % (33.0-51.0); Hemoglobin 3.6 g/dL (11.5-16.0)
--- NOTE | 2020-12-26 09:31 | NUR ---
PT AWAKENS EASILY TO VERY STIMULI, PT STS THAT SHE DOES NOT WISH TO TAKE HER ORAL MEDICATIONS, ORAL MEDS ARE HELD AT THIS TIME R/T REFUSAL
--- NOTE | 2020-12-26 13:15 | NUR ---
12/26/20- per chart review with Dr. Roy, pt's health continues to decline. He has spoken with the daughter and is aware of the protocol that needs be followed regarding pt's beliefs. She is still receiving iron infusions. No d/c plan. -stacia
--- NOTE | 2020-12-26 17:57 | NUR ---
SHIFT NOTE PT WITH LARGE LOOSE BLACK STOOL AT THE END OF THE SHIFT. PT IS ALERT, SLOW TO ANSWER QUESTIONS. PT WITH WARM PALE SKIN. PT HAS BEEN ASLEEP T/O MOST OF THE DAY. VSS. BLAIR DRAINING TO GRAVITY. PT HAS RECIEVED EPOGEN THIS MORNING. PT IS ABLE TO INTERACT WITH TURNING AND REPOSITIONING WITH MINIMAL ASSITANCE.
--- NOTE | 2020-12-27 06:00 | NUR ---
SHIFT SUMMARY PATIENT FOUND TO BE A CONFUSED LADY ONLY ORIENTED TO HERSELF AT THIS TIME. SLOW TO RESPOND. FOLLOWS SOME COMMANDS BUT NOT ALL. GARCIA. AFIB IN THE 90'S MOST OF SHIFT. ON RA. BLAIR DRAINING CLEAR, YELLOW URINE. TOLERATING CLD. ONE MEDIUM BM MIDSHIFT THAT WAS DARK REDDISH BLACK IN BRIEF. Q2H TURNS. FLUIDS AND PROTONIX DRIP INFUSING PER ORDER. NO ACUTE CONCERNS AT THIS TIME. WILL CONTINUE TO MONITOR.
--- NOTE | 2020-12-27 16:31 | NUR ---
12/27/20- per chart review, no d/c planned at this time. Dr. Abreu will cont. to monitor her care. -stacia
--- NOTE | 2020-12-27 18:08 | NUR ---
ADMISSION TO UNIT STARTED PATIENT SEEMS LETHARGIC AND ASKING RN TO REPEAT QUESTIONS BUT NOT GIVING ANSWERS
--- NOTE | 2020-12-27 18:44 | NUR ---
CARE TURNED OVER TO Ayden JIMÉNEZ RN.
--- NOTE | 2020-12-27 18:45 | NUR ---
PT HAD 4 BLACK TARRY STOOLS DURING DAY SHIFT; PT REPORTED DISCOMFORT FROM FREQUENT SKIN WIPING IN SPITE OF ZINC OINTMENT APPLICATION; PT'S DAUGHTER ANNA AT BEDSIDE; PT ON 2LNC ALL DAY SHIFT; PT NPO AFTER 1300; PT LEFT FOR EGD PROCEDURE AT 1803 VIA STRETCHER WITH GI DAY HABILITATION SPECIALIST AFTER PROVIDING REPORT AT THE BEDSIDE; DR. MAYS WAS CALLED AT 1813 CONCERNING HER TARRY STOOLS; PT AND PT'S DAUGHTER DENIED ADDITIONAL CONCERNS AT THIS TIME.
--- NOTE | 2020-12-27 19:11 | NUR ---
12/27/201910 MELINDA JIMÉNEZ History, Chart, Medications and Allergies reviewed before start of procedure. 3-LEAD EKG REVIEWED WITH PHYSICIAN PRIOR TO START OF PROCEDURE. O2 VIA POM MASK INTACT THROUGHOUT SEDATION/PROCEDURE. 3-LEAD EKG REVIEWED WITH PHYSICIAN PRIOR TO START OF PROCEDURE. MONITOR INTACT WITH CONTINUOUS PULSE OXIMETRY AND INTERMITTENT BP. MAC WITH DR. BLOOM.
--- NOTE | 2020-12-28 06:30 | NUR ---
SHIFT SUMMARY PT REMAINS ALERT TO SELF ONLY. CALLS OUT CONSTANTLY FOR ALEX. PT VERY PALE. HAD 2 DARK TARRY STOOLS SINCE ARRIVAL TO UNIT. PT SATS >92% ON 2L O2 PER NC. SBP CURRENTLY 100, HAS BEEN LOW. PULSES WEAK. BLAIR DRAINING YELLOW URINE. PT TAKES PILLS WHOLE IN APPLESAUCE. PT ABLE TO MOVE ARMS FEEBLY. SITE TO RIGHT GROIN WNL. NO BLEEDING TO AREA. PT CONSTANTLY COMPLAINS OF PAIN, TYLENOL NOT ADEQUATE. DISCUSSED NEED FOR ALTERNATE OPTIONS WITH DAUGHTER WHO WILL DISCUSS WITH PROVIDER. PT AFIB AT 113, LUNG SOUNDS CLEAR TO UPPER, DIMINISHED TO BASES. PROTONIX INFUSING AT 10ML/HR, D51/2NS INFUSING AT 75ML/HR. MUSIC PLAYING IN BACKGROUND FOR PT COMFORT. SIDE RAILS UP, BEDALARM ACTIVE. WILL REPORT TO ONCOMING RN.
--- NOTE | 2020-12-28 07:38 | NUR ---
Assumed care of pt at 0700. Bedside report received from Zelalem PULLIAM. Pt A&O x 1. Answers questions. Follows commands. Flat affect. States she is at home when asked her current location. Tachycardia per monitor, rate 127. BBB noted. BP labile. No visitors currently present in room. Lucero catheter draining clear, yellow urine. Bed in lowest position. Call light in reach. Bed alarm on.
--- NOTE | 2020-12-28 08:22 | NUR ---
HR trending up. Pt hypotensive. Call placed to Dr Abreu to notify. Provider promptly at bedside, assessing pt at this time.
--- NOTE | 2020-12-28 09:20 | NUR ---
Called to ICU per request of nursing. Pt has had a sudden decline in condition this morning and has been been transitioned to comfort care. Two dtrs, nursing and Dr. Abreu at bedside when this RN arrived. Emotional support to pt's dtrs. Pt is moaning with breathing. Morphine was given with some relief. Nursing placing comfort care orders and will give ativan once it is available. Two dtrs at bedside are aware that their mom is actively dying at this time. Ice water provided to daughters. Will remain available.
--- NOTE | 2020-12-28 10:02 | NUR ---
Pt's daughters at bedside by 0845. At this time, pt's was now totally unresponsive and dusky. Notified Dr Abreu and she was promptly at bedside. Decision made by family to transition patient to comfort care. Morphine given IV for pt's comfort. Pt had vocalizations with breathing and eyes open. Grimace present. Ativan given. Afterwards, family agreed that pt looked comfortable. TOD at 0949 verified by absence of heart sounds on auscultation. Pt's daughter, Jennifer, at bedside as well as her son. Notified Dr Abreu and Dr Cobos that pt .
--- NOTE | 2020-12-28 11:23 | NUR ---
Requested to return to ICU for support. Pt has . One dtr left prior to this RN's return to ICU. Dtr and grandson present at bedside. Emotional support given. No requests at present. Family encouraged to take the time they need for their final goodbyes.
== END 2020-12-28 09:49 | DRG 356 ==
LOC: ER 13:38 → PCU 13:39 → ICUE 12-24 11:33 → PCU 12-24 11:33 → ICUE 12-27 23:51
PROVIDERS: Emergency Medicine; Family Medicine; Internal Medicine Gastroenterology; ADMIT Internal Medicine
PROC: 0DJD8ZZ Inspection of Lower Intestinal Tract, Via Natural or Artificial Opening Endoscopic (ICD-10-PCS; 2020-12-23)
PROC: 0DJ08ZZ Inspection of Upper Intestinal Tract, Via Natural or Artificial Opening Endoscopic (ICD-10-PCS; principal; 2020-12-23 16:15)
PROC: 0DJ08ZZ Inspection of Upper Intestinal Tract, Via Natural or Artificial Opening Endoscopic (ICD-10-PCS; 2020-12-27)
PROC: 04L33DZ Occlusion of Hepatic Artery with Intraluminal Device, Percutaneous Approach (ICD-10-PCS; 2020-12-27)
DX: K25.0 Acute gastric ulcer with hemorrhage (principal); A41.9 Sepsis, unspecified organism; G93.41 Metabolic encephalopathy; R65.20 Severe sepsis without septic shock; E87.1 Hypo-osmolality and hyponatremia; N39.0 Urinary tract infection, site not specified; Z51.5 Encounter for palliative care; Z66 Do not resuscitate; D62 Acute posthemorrhagic anemia; K26.4 Chronic or unspecified duodenal ulcer with hemorrhage; E86.0 Dehydration; K22.2 Esophageal obstruction; E87.6 Hypokalemia; Z53.29 Procedure and treatment not carried out because of patient's decision for other reasons; F02.80 Dementia in other diseases classified elsewhere, unspecified severity, without behavioral disturbance, psychotic disturbance, mood disturbance, and anxiety; I95.1 Orthostatic hypotension; K57.30 Diverticulosis of large intestine without perforation or abscess without bleeding; D64.9 Anemia, unspecified; G30.9 Alzheimer's disease, unspecified; M54.5 Low back pain; F32.9 Major depressive disorder, single episode, unspecified; G89.29 Other chronic pain; J44.9 Chronic obstructive pulmonary disease, unspecified; E78.5 Hyperlipidemia, unspecified; F41.9 Anxiety disorder, unspecified; Z88.0 Allergy status to penicillin; Z91.018 Allergy to other foods; Z79.82 Long term (current) use of aspirin; Z79.899 Other long term (current) drug therapy; Z87.891 Personal history of nicotine dependence; Z79.01 Long term (current) use of anticoagulants; Z90.49 Acquired absence of other specified parts of digestive tract; Z90.710 Acquired absence of both cervix and uterus; Z98.890 Other specified postprocedural states; Z86.73 Personal history of transient ischemic attack (TIA), and cerebral infarction without residual deficits
CPT/HCPCS: 36247; 36415; 37244; 51702; 70450; 71045; 75726; 75774; 76937; 80047; 80048; 80053; 81001; 82728; 82947; 83540; 83550; 83605; 83735; 83880; 84145; 84484; 85014; 85018; 85025; 85610; 86850; 86900; 86901; 86923; 87040; 87086; 93005; 93010; 94760; 96365-59; 96366; 96368; 96375; 96376; 99152; 99153; 99285-25; A9270; C1751; C1760; C1769; C1887; C1894; C9113; G0378; G0480; J0171; J0696; J1644; J1750; J2060; J2250; J2270; J2370; J2405; J2704; J3010; J3370; J3480; J7030; J7040; J7050; J7060; J7120; Q5106; Q9967